=== PATIENT | male | born 1985 | race Caucasian/White ===

== ENCOUNTER 2017-12-03 16:43 | Inpatient (IN) | payer OTHER ==
[~2017-12-03] VITALS: Ht 175.3 cm; Wt 72.6 kg
--- NOTE | 2017-12-03 17:00 | NUR ---
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 Patient fully admitted, no skin issues identified. Dr Martinez made aware of patient's arrival, awaiting admitting orders.
[2017-12-03 17:02] VITALS: BP 121/78
[2017-12-03] MEDS ORDERED: Z GUARD REMEDY 2 OZ OINT TP PRN (17:30)
[2017-12-03] MEDS ORDERED: MAGNESIUM HYDROXIDE 30 ML UDC PO PRN (17:30)
[2017-12-03] MEDS ORDERED: MAG HYDROX/AL HYDROX/SIMETH 30 ML UDC PO PRN (17:30)
[2017-12-03] MEDS ORDERED: ZOLPIDEM TARTRATE 5 MG TABLET PO PRN (17:30)
[2017-12-03] MEDS ORDERED: ONDANSETRON HCL/PF 4 MG/2 ML VIAL IVP PRN (17:30)
[2017-12-03] MEDS ORDERED: ACETAMINOPHEN 325 MG TABLET PO PRN (17:30)
--- NOTE | 2017-12-03 17:50 | NUR ---
MS/RN Orders Orders noted and carried out. Patient able to take clear liquid diet.
[2017-12-03] MEDS: HYDROCODONE/APAP 5/325MG 1 EACH TABLET PO PRN ×2 (17:56→22:22)
[2017-12-03 18:00] VITALS: BP 121/78
[2017-12-03] MEDS: IV NS 0.9% 1,000 ML IV PRN (18:11)
[2017-12-03 18:57] LABS: CALCIUM, SERUM 8.2 mg/dL (8.5-10.1); CREATININE 0.7 mg/dL (0.6-1.3)
--- NOTE | 2017-12-03 19:35 | NUR ---
RN OPENING NOTES RECEIVED REPORT FROM DAYSJEFF RN VIKI. FOUND Pt AWAKE, RESTING IN BED. NO S/S OF ACUTE DISTRESS OR SOB NOTED. SISTER VISITING AT BEDSIDE. Pt IS A/OX4, VERBAL, ABLE TO MAKE NEEDS KNOWN. IV ACCESS ON LAC #20G, IVF NS @75ML/HR. SAFETY MEASURES IN PLACE. BED LOW, LOCKED, HOB ELEVATED, SIDE RAILS UP, CALL LIGHT AND BEDSIDE TABLE WITHIN REACH. WILL CONTINUE TO MONITOR Pt THROUGHOUT THE NIGHT FOR SAFETY. PER DAYSJEFF RN, DR. DAVIS WILL NOTIFY DR ROBERTS FOR SURGERY CONSULT TOMORROW IN THE AM, POSSIBLE SURGERY TO FOLLOW, WILL HAVE SURGERY CONSENT PACKET READY, AND WILL HAVE Pt NPO AT MIDNIGHT TONIGHT.
[2017-12-03 20:00] VITALS: BP 119/69
[2017-12-03] MEDS: PIPERACILLIN /TAZOBACTAM 3.375 G in IV NS 0.9% 50 ML IV SCH (22:13)
[2017-12-04] MEDS: PIPERACILLIN /TAZOBACTAM 3.375 G in IV NS 0.9% 50 ML IV SCH ×4 (03:08→22:31)
[2017-12-04 06:35] LABS: BASOPHILS # (AUTO) 0.1 /CMM (0.0-0.2); BASOPHILS % (AUTO) 1.2 % (0.0-2.0); EOSINOPHILS % (AUTO) 3.8 % (0.0-6.0); HEMATOCRIT 47 % (39-51); HEMOGLOBIN 15.4 g/dL (13.5-17.5); LYMPHOCYTES % (AUTO) 21.4 % (20.0-44.0); MEAN CORPUSCULAR HEMOGLOBIN 28 PG (26.0-33.0); MEAN CORPUSCULAR HGB CONC 33 g/dl (31.0-36.0); MEAN CORPUSCULAR VOLUME 86 fL (80-96); MONOCYTES # (AUTO) 0.8 /CMM (0.1-1.30); MONOCYTES % (AUTO) 8.7 % (2.0-12.0); NEUTROPHILS # (AUTO) 6.1 /CMM (1.8-8.9); NEUTROPHILS % (AUTO) 64.9 % (43.0-81.0); PLATELET COUNT (AUTO) 247 /CMM (150-450); RDW COEFFICIENT OF VARIATION 13.8 (11.5-15.0); RED BLOOD CELL COUNT(AUTO) 5.49 MIL/uL (4.5-6.0); WHITE BLOOD COUNT (AUTO) 9.4 K/uL (4.3-11.0)
--- NOTE | 2017-12-04 06:35 | NUR ---
RN CLOSING NOTES NO SIGNIFICANT CHANGES IN Pt's CONDITION. Pt REMAINS STABLE AT THIS TIME. NO S/S OF ACUTE DISTRESS OR SOB NOTED DURING THE NIGHT. ALL NEEDS MET AND ATTENDED TO. SAFETY MEASURES IN PLACE. BED LOW, LOCKED, HOB ELEVATED, SIDE RAILS UP, CALL LIGHT AND BEDSIDE TABLE WITHIN REACH. WILL ENDORSE TO DAYSHIFT RN FOR Pt's CANDELARIO. Pt's SURGERY SCHEDULED AT 1230PM TODAY.
[2017-12-04 06:50] LABS: ALBUMIN 3.5 g/dL (3.4-5.0); BILIRUBIN,TOTAL 0.7 mg/dL (0.2-1.0); CALCIUM, SERUM 8.4 mg/dL (8.5-10.1); CREATININE 0.9 mg/dL (0.6-1.3); MAGNESIUM 2.1 mg/dL (1.8-2.4); PHOSPHORUS 3.9 mg/dL (2.5-4.9); POTASSIUM 4.7 mmol/L (3.5-5.1); TOTAL PROTEIN, SERUM 6.4 g/dL (6.4-8.2)
--- NOTE | 2017-12-04 07:45 | NUR ---
RN NOTES/OPENING NOTES PT RECEIVED, SLEEPING COMFORTABLY IN BED EASILY AROUSABLE DURING CARE. RESPIRATIONS EVEN AND UNLABORED, DENIES ANY PAIN OR DISCOMFORT. RESPIRATIONS EVEN UNLABORED, ABLE TO MAKE NEEDS KNOWN. IV ACCESS TO LAC PATENT AND INTACT NO REDNESS OR INFILTRATION NOTED. CALL LIGHT WITHIN EASY REACH WILL CONTINUE TO MONITOR
[2017-12-04 08:00] VITALS: BP 116/72
[2017-12-04 08:08] LABS: INR 1.01 (0.87-1.13)
[2017-12-04] MEDS ORDERED: ANESTHESIA TRAY IN PYXIS 1 EA TRAY MC ONE (11:07)
[2017-12-04] MEDS ORDERED: LIDOCAINE HCL/PF 1% 30 ML SDV ONE (11:07)
[2017-12-04] MEDS ORDERED: LIDOCAINE 1%-EPI 1:100,000 20 ML VIAL ONE (11:07)
--- NOTE | 2017-12-04 12:13 | NUR ---
RN NOTES/OR PT TAKEN TO OR IN STABLE CONDITION WILL CONTINUE TO MONITOR UPON RETURN TO UNIT
[2017-12-04] MEDS ORDERED: BUPIVACAINE MPF 0.5% W/EPI INJ 30 ML VIAL ONE (12:37)
[2017-12-04] MEDS ORDERED: ONDANSETRON HCL/PF 4 MG/2 ML VIAL ONE (14:08)
--- NOTE | 2017-12-04 14:40 | NUR ---
RN NOTES PATIENT BACK FROM SURGERY NOTED WITH 3 LAPOROSCOPIC SURGICAL INCISIONS WITH DERMABOND GLUE SEAL NO BLEEDING OR REDNESS TO SITE NOTED
[2017-12-04] MEDS: HYDROCODONE/APAP 5/325MG 1 EACH TABLET PO PRN ×2 (14:53→20:05)
[2017-12-04] MEDS: IV NS 0.9% 1,000 ML IV PRN (15:11)
[2017-12-04 16:00] VITALS: BP 118/70
--- NOTE | 2017-12-04 18:21 | NUR ---
RN NOTES/CLOSING NOTES PT AWAKE ALERT AND VERBALLY RESPONSIVE, ABLE TO MAKE NEEDS KNOWN. RESPIRATIONS EVEN AND UNLABORED, DENIES ANY PAIN OR DISCOMFORT. RESPIRATIONS EVEN UNLABORED, ABLE TO MAKE NEEDS KNOWN. IV ACCESS TO LAC PATENT AND INTACT NO REDNESS OR INFILTRATION NOTED. CALL LIGHT WITHIN EASY REACH WILL CONTINUE TO MONITOR
--- NOTE | 2017-12-04 18:28 | NUR ---
WILL ENDORSE TO NEXT SHIFT FOR CONTINUITY OF CARE
--- NOTE | 2017-12-04 19:35 | NUR ---
RN OPENING NOTES RECEIVED REPORT FROM DAYSHIFT DAVIN GORDON. FOUND Pt AWAKE, RESTING IN BED. FAMILY VISITING AT BEDSIDE. NO S/S OF ACUTE DISTRESS OR SOB NOTED. Pt IS A/OX4, VERBAL, ABLE TO MAKE NEEDS KNOWN. IV ACCESS ON LAC #20G, IVF NS @75ML/HR. S/P LAPAROSCOPIC CHOLECYSTECTOMY TODAY 12/04. SAFETY MEASURES IN PLACE. BED LOW, LOCKED, HOB ELEVATED, SIDE RAILS UP, CALL LIGHT AND BEDSIDE TABLE WITHIN REACH. WILL CONTINUE TO MONITOR Pt THROUGHOUT THE NIGHT FOR SAFETY.
[2017-12-04 20:00] VITALS: BP 110/72
[2017-12-05] MEDS: PIPERACILLIN /TAZOBACTAM 3.375 G in IV NS 0.9% 50 ML IV SCH ×3 (03:48→15:02)
[2017-12-05] MEDS: IV NS 0.9% 1,000 ML IV PRN (06:19)
[2017-12-05] MEDS: HYDROCODONE/APAP 5/325MG 1 EACH TABLET PO PRN (06:21)
--- NOTE | 2017-12-05 06:21 | NUR ---
RN NOTES Pt IS C/O 10/10 PAIN ON RT ABD SURGICAL SITE. ADMINISTERED NORCO 5 PER MD ORDER FOR PAIN.
--- NOTE | 2017-12-05 06:35 | NUR ---
RN CLOSING NOTES NO SIGNIFICANT CHANGES IN Pt's CONDITION. Pt REMAINS IN STABLE CONDITION. NO S/S OF ACUTE DISTRESS OR SOB NOTED DURING THE NIGHT. ALL NEEDS MET AND ATTENDED TO. SAFETY MEASURES IN PLACE. BED LOW, LOCKED, HOB ELEVATED, SIDE RAILS UP, CALL LIGHT AND BEDSIDE TABLE WITHIN REACH. WILL ENDORSE TO DAYSHIFT RN FOR Pt's CANDELARIO.
[2017-12-05 07:02] LABS: ALBUMIN 3.3 g/dL (3.4-5.0); BILIRUBIN,TOTAL 0.6 mg/dL (0.2-1.0); CALCIUM, SERUM 8.4 mg/dL (8.5-10.1); CREATININE 0.9 mg/dL (0.6-1.3); MAGNESIUM 2.2 mg/dL (1.8-2.4); PHOSPHORUS 4.3 mg/dL (2.5-4.9); TOTAL PROTEIN, SERUM 6.2 g/dL (6.4-8.2)
[2017-12-05 08:00] VITALS: BP 121/73
[2017-12-05 08:14] VITALS: BP 121/73
[2017-12-05] MEDS ORDERED: PANTOPRAZOLE 40 MG TABLET.DR PO SCH (09:00)
--- NOTE | 2017-12-05 15:00 | NUR ---
RN NOTES PT WITH DC ORDERS, WILL CONTINUE TO ASSIST WITH DC PROCESS
[2017-12-05 16:17] VITALS: BP 125/72
--- NOTE | 2017-12-05 17:10 | NUR ---
RN NOTES/DISCHARGE NOTES PT AWAKE ALERT AND VERBALLY RESPONSIVE, ABLE TO MAKE NEEDS KNOWN. RESPIRATIONS EVEN AND UNLABORED, DENIES ANY PAIN OR DISCOMFORT. IV ACCESS TO LAC AND ID BAND REMOVED WITH NO ASE NOTED, PT WITH 3 SURGICAL INCISION SITES NO REDNESS NO S/S OF INFECTION NOTED REFUSED PICTURES NURSING EDUCATION PROVIDED. PT WITH FOLLOW UP APPT PT AWARE, ASSISTED TO LOBBY BY PHYSICAL EDUCATION TEACHER DISCHARGED IN STABLE CONDITION
== END 2017-12-05 17:10 | disposition home or self-care (01) | DRG 419 ==
LOC: MEDSG2 16:44
PROVIDERS: ADMIT Internal Medicine; ATTEND Internal Medicine
PROC: 0FT44ZZ Resection of Gallbladder, Percutaneous Endoscopic Approach (ICD-10-PCS; principal; 2017-12-04 12:30)
DX: K80.10 Calculus of gallbladder with chronic cholecystitis without obstruction (principal); F17.210 Nicotine dependence, cigarettes, uncomplicated
CPT/HCPCS: 36415; 80048-TC; 80053-TC; 80061-TC; 82150-TC; 83690-TC; 83735-TC; 84100-TC; 85025-TC; 85610-TC; 87081-TC; 88304-TC; A4216; J2405; J2543; J3490; J7030

== ENCOUNTER 2017-12-10 12:26 | Outpatient (CLI) | payer OTHER ==
[2017-12-10 12:35] VITALS: BP 105/66
== END 2017-12-10 23:59 | disposition home or self-care (01) ==
LOC: MSC 12:26
PROVIDERS: ATTEND Internal Medicine
DX: Z09 Encounter for follow-up examination after completed treatment for conditions other than malignant neoplasm (principal); K40.20 Bilateral inguinal hernia, without obstruction or gangrene, not specified as recurrent; Z90.49 Acquired absence of other specified parts of digestive tract; F17.200 Nicotine dependence, unspecified, uncomplicated